=== PATIENT | male | born 1960 | race Caucasian/White ===

== ENCOUNTER 2016-10-05 22:57 | Emergency (ER) | payer SELFPAY ==
[~2016-10-05] VITALS: Ht 167.6 cm; Wt 66.5 kg
[~2016-10-05 22:57] MED LIST: CEFT1FRO2 IV; HYDR-906 PO; LANT3I SC; MTF1000T PO
[2016-10-05 23:02] VITALS: Ht 167.6 cm; Wt 66.5 kg
== END 2016-10-06 03:09 | disposition left against medical advice (07) ==
LOC: FTE 22:57
DX: Z53.21 Procedure and treatment not carried out due to patient leaving prior to being seen by health care provider (principal)

== ENCOUNTER 2016-10-08 23:08 | Emergency (ER) | payer OTHER ==
[~2016-10-08] VITALS: Ht 175.3 cm; Wt 67.5 kg
[2016-10-08 23:11] VITALS: Ht 175.3 cm; Wt 67.5 kg
--- NOTE | 2016-10-09 00:08 | ERD ---
ER Documentation Chief Complaint Date/Time DATE: 10/09/16 TIME: 00:05 Chief Complaint requesting picc line removal HPI 56-year-old male presents here in emergency department for PICC line removal, patient had a 10 day course of IV antibiotics, was done 3 weeks ago. Patient denies any pain or redness running the PICC line area. Patient is here today for having the PICC line removed. Patient states that is done with these treatments. Patient denies any fever or chills. Patient denies any chest pain. Patient denies any other complaints. ROS All systems reviewed and are negative except as per history of present illness. Medications Home Meds Active Scripts Insulin Glargine* (Lantus*) 100 Unit/Ml Soln, 35 UNIT SC DAILY, #1 VIAL Prov:LANDON,TOPHER V. DISEASE CASE MANAGER 08/29/16 Hydrocodone/Acetaminophen ([place] 5-325 Tablet) 1 Each Tablet, 1 EACH PO Q6H for PAIN, #20 TAB Prov:LANDON,TOPHER V. DISEASE CASE MANAGER 08/29/16 Ceftriaxone Na/Dextrose,Iso (Ceftriaxone 1 gm Piggyback) 1 Gm/50 Ml Froz.piggy, 1 GM IV DAILY for 10 Days Prov:LANDON,TOPHER V. DISEASE CASE MANAGER 08/29/16 Reported Medications Metformin* (Glucophage*) 1,000 Mg Tablet, 1000 MG PO BID, #60 TAB 08/26/16 Allergies Allergies: Coded Allergies: No Known Allergy (Verified , 05/08/16) PMhx/Soc Medical and Surgical Hx: pt denies Medical Hx, pt denies Surgical Hx History of Surgery: No Anesthesia Reaction: No Hx Neurological Disorder: No Hx Respiratory Disorders: No Hx Cardiac Disorders: No Hx Psychiatric Problems: No Hx Miscellaneous Medical Probl: No Hx Alcohol Use: No Hx Substance Use: No Hx Tobacco Use: No Smoking Status: Never smoker FmHx Family History: No coronary disease, No diabetes, No other Physical Exam Vitals Vital Signs Date Time Temp Pulse Resp B/P Pulse Ox O2 Delivery O2 Flow Rate FiO2 10/08/16 23:11 97.3 87 20 169/77 100 Physical Exam GENERAL: The patient is well developed and appropriate for usual state of health, in no apparent distress. CHEST: Clear to auscultation bilaterally. There are no rales, wheezes or rhonchi. HEART: Regular rate and rhythm. No murmurs, clicks, rubs or gallops. No S3 or S4. ABDOMEN: Soft, nontender and nondistended. Good bowel sounds. No rebound or guarding. No gross peritonitis. No gross organomegaly or masses. No Chavez sign or McBurney point tenderness. BACK: No midline or flank tenderness. EXTREMITIES: Patient has PICC line in place on the left arm, no erythema surrounding the area, no swelling noted, no induration noted. No symptoms of any infection. No discharge coming from the area. Equal pulses bilaterally. There is no peripheral clubbing, cyanosis or edema. No focal swelling or erythema. Full range of motion. Grossly neurovascularly intact. NEURO: Alert and oriented. Cranial nerves 2-12 intact. Motor strength in all 4 extremities with 5/5 strength. Sensation grossly intact. Normal speech and gait. SKIN: There is no apparent rash or petechia. The skin is warm and dry. HEMATOLOGIC AND LYMPHATIC: There is no evidence of excessive bruising or lymphedema. No gross cervical, axillary, or inguinal lymphadenopathy. Results 24 hrs I discussed this with Dr. Schmidt attending physician, he said that as long as patient agrees and verbalizes the treatment is done, that we can remove the PICC line in place, at this time, no symptoms of any infection, he recommended to send the PICC line tip for culture to the laboratory. No symptoms of sepsis at this time. Patient appears well and is hemodynamically stable. Pending culture results of the PICC line tip. Procedures/MDM Procedure Note: After patient's verbal consent, the area was cleaned with diluted Betadine, the area was inspected, there is no symptoms of any infection surrounding the PICC line, afterwards, the PICC line was removed without any difficulty. Patient tolerated procedure well. A dressing was applied on affected area, pressure dressing was applied on affected area, no bleeding at this time. Medical decision making: Patient does not have any signs of infection in the PICC line, a PICC line and culture was sent. Patient tolerated procedure well. Patient is advised to follow-up with primary care doctor in 1-2 days, return for any symptoms of infection on the PICC line. Departure Diagnosis: Primary Impression: PIC line (peripherally inserted central catheter) removal Condition: Stable LEONORA CATALAN NP Oct 09, 2016 00:08
== END 2016-10-09 01:20 | disposition home or self-care (01) ==
LOC: FTE 23:08
DX: Z45.2 Encounter for adjustment and management of vascular access device (principal); E11.9 Type 2 diabetes mellitus without complications; N18.9 Chronic kidney disease, unspecified; Z79.4 Long term (current) use of insulin; Z79.84 Long term (current) use of oral hypoglycemic drugs
CPT/HCPCS: 87070; Z7502; 99283

== ENCOUNTER 2017-02-19 19:20 | Emergency (ER) | payer OTHER ==
[~2017-02-19] VITALS: Ht 177.8 cm; Wt 72.0 kg
[2017-02-19 19:41] VITALS: Ht 177.8 cm; Wt 72.0 kg
--- NOTE | 2017-02-19 20:57 | ERA ---
ER Documentation Chief Complaint Date/Time DATE: 02/19/17 TIME: 20:55 Chief Complaint cough x 2 weeks HPI Patient presents complaining of 2 weeks of cough. Patient has taken over-the- counter cough medicine with minimal relief. Patient does not remember specific cough medication. Patient denies difficulty breathings, asthma, high fever, meningismus, pharyngitis, change in voice, drooling, chest pain, hemoptysis, dysphagia, edema/angioedema, excessive weight loss, sweats, chills or rigors. ROS All systems reviewed and are negative except as per history of present illness. Medications Home Meds Active Scripts Benzonatate* (Tessalon Perle*) 100 Mg Capsule, 100 MG PO TID for 3 Days, #9 CAP Prov:KHOA TABARES PA-C 02/19/17 Insulin Glargine* (Lantus*) 100 Unit/Ml Soln, 35 UNIT SC DAILY, #1 VIAL Prov:LANDON,TOPHER V. GOLF BALL COVER TREATER 08/29/16 Hydrocodone/Acetaminophen ([place] 5-325 Tablet) 1 Each Tablet, 1 EACH PO Q6H for PAIN, #20 TAB Prov:LANDON,TOPHER V. GOLF BALL COVER TREATER 08/29/16 Ceftriaxone Na/Dextrose,Iso (Ceftriaxone 1 gm Piggyback) 1 Gm/50 Ml Froz.piggy, 1 GM IV DAILY for 10 Days Prov:LANDON,TOPHER V. GOLF BALL COVER TREATER 08/29/16 Reported Medications Metformin* (Glucophage*) 1,000 Mg Tablet, 1000 MG PO BID, #60 TAB 08/26/16 Allergies Allergies: Coded Allergies: No Known Allergy (Verified , 02/19/17) PMhx/Soc Medical and Surgical Hx: pt denies Medical Hx, pt denies Surgical Hx History of Surgery: No Anesthesia Reaction: No Hx Neurological Disorder: No Hx Respiratory Disorders: No Hx Cardiac Disorders: No Hx Psychiatric Problems: No Hx Miscellaneous Medical Probl: Yes (dm 2) Hx Alcohol Use: No Hx Substance Use: No Hx Tobacco Use: No Smoking Status: Never smoker Physical Exam Vitals Vital Signs Date Time Temp Pulse Resp B/P Pulse Ox O2 Delivery O2 Flow Rate FiO2 02/19/17 19:41 98.4 97 20 131/85 98 Physical Exam Const: Well-developed overweight 56-year-old male no acute distress. Head: Atraumatic Eyes: Normal Conjunctiva ENT: Normal External Ears, Nose and Mouth. Neck: Full range of motion..~ No meningismus. Resp: Mild crackles in lower lobes bilaterally. Cardio: Regular rate and rhythm, no murmurs Abd: Soft, non tender, non distended. Normal bowel sounds Skin: No petechiae or rashes Back: No midline or flank tenderness Ext: No cyanosis, or edema Neur: Awake and alert Psych: Normal Mood and Affect Procedures/MDM This is a patient being worked up and evaluated for cough. Patient's x-ray was unremarkable. Patient's chest examination revealed only mild crackles in lower lobes. At this time a very low suspicion for pneumonia, management of the airway, bacterial etiology. The most likely diagnosis is acute bronchitis due to a viral origin. Will give patient traumatic therapy with Tesangelo Martin. Have advised patient to follow-up with PCP in 1-3 days for reevaluation. Patient's vitals are stable and patient's concurrent condition is appropriate for discharge. Departure Diagnosis: Primary Impression: Acute bronchitis Qualified Code: J20.9 - Acute bronchitis, unspecified organism Condition: Stable Additional Instructions: Follow up with your PCP within the next 1-3 days for a more thorough evaluation and a possible referral to a specialist. Return the the emergency department immediately if symptoms worsen or change. If you have any questions regarding medications, ask your pharmacist or us before you leave. If any adverse reactions occur while taking your medications, discontinue the treatment and return to the emergency department immediately. Take your medications as directed, and complete the entire course of treatment. KHOA TABARES PA-C February 19, 2017 20:57
--- NOTE | 2017-02-19 23:19 | RADRPT ---
PROCEDURE: XR Chest. CLINICAL INDICATION: Cough. TECHNIQUE: PA and lateral views of the chest were obtained. COMPARISON: 08/28/2016 FINDINGS: The trachea central bronchi are patent. The cardiomediastinal silhouette is within normal limits. The lungs are clear with improved aeration compared to the prior study. No pleural effusion or pneu mothorax is identified. The visualized osseous structures are intact. Interval removal of left PICC RPTAT:HJJR IMPRESSION: Unremarkable two-view chest x-ray with improved aeration of the lungs compared to 08/28/2016. Physician Bob Date Time Electronically viewed and signed by Physician Bob on 02/19/2017 23:19 JR/
[2017-02-19] MEDS ORDERED: BENZ100C70 PO (23:42)
[2017-02-19 23:55] VITALS: BP 159/75; PULSE 92; RESP 22; TEMP 98.2
== END 2017-02-19 23:57 | disposition home or self-care (01) ==
LOC: FTE 19:20
DX: J20.9 Acute bronchitis, unspecified (principal); E11.9 Type 2 diabetes mellitus without complications; Z79.4 Long term (current) use of insulin; Z79.84 Long term (current) use of oral hypoglycemic drugs
CPT/HCPCS: 71020; Z7502

== ENCOUNTER 2017-06-22 11:00 | Emergency (ER) | payer OTHER ==
[~2017-06-22] VITALS: Ht 167.6 cm; Wt 69.5 kg
[~2017-06-22 11:00] MED LIST changes: +BENZ100C70 PO
[2017-06-22 11:04] VITALS: Ht 167.6 cm; Wt 69.5 kg
[2017-06-22] MEDS ORDERED: SODIUM CHLORIDE 0.9% 1L BAG IV* STA (11:28)
--- NOTE | 2017-06-22 11:50 | RADRPT ---
PROCEDURE: XR Chest. CLINICAL INDICATION: Cough. Sepsis. TECHNIQUE: Single frontal view. COMPARISON: 02/19/2017. FINDINGS: The lungs are clear. The heart size is normal. There is no pleural effusion. There is no pneumothorax. IMPRESSION: 1. Normal chest radiograph. RPTAT: QQ .Archie Yao MD, MD Date Time Electronically viewed and signed by .Archie Yao MD, MD on 06/22/2017 11:49 .R/
[2017-06-22 12:58] LABS: HEMATOCRIT 41.5 % (42.0-52.0); HEMOGLOBIN 14.8 g/dl (14.0-18.0); MEAN CORPUSCULAR HEMOGLOBIN 30.1 pg (29.0-33.0); MEAN CORPUSCULAR HGB CONC 35.7 g/dl (32.0-37.0); MEAN CORPUSCULAR VOLUME 84.3 fl (82.0-101.0); MEAN PLATELET VOLUME 9.1 fl (7.4-10.4); PLATELET COUNT 292 10^3/UL (140-415); POSITIVE DIFF @See below; RED BLOOD COUNT 4.92 10^6/ul (4.70-6.10); RED CELL DISTRIBUTION WIDTH 11.6 % (11.5-14.5); WHITE BLOOD COUNT 11.6 10^3/ul (4.8-10.8)
[2017-06-22 13:18] LABS: ALBUMIN 4.5 g/dl (3.3-4.9); ALBUMIN/GLOBULIN RATIO 1.21; BILIRUBIN,INDIRECT 0.6 mg/dl (0-1.1); BILIRUBIN,TOTAL 0.6 mg/dl (0.2-1.3); CALCIUM 8.8 mg/dl (8.4-10.2); CREATININE 1.59 mg/dl (0.61-1.24); POTASSIUM 4.5 mmol/L (3.5-5.1); TOTAL PROTEIN 8.2 g/dl (6.1-8.1)
[2017-06-22 13:30] LABS: ADD UMIC YES; UR ASCORBIC ACID NEGATIVE (NEGATIVE); UR BILIRUBIN (Dip) NEGATIVE (NEGATIVE); UR BLOOD (Dip) NEGATIVE (NEGATIVE); UR CLARITY CLEAR (CLEAR); UR COLOR YELLOW (YELLOW); UR GLUCOSE (Dip) NEGATIVE (NEGATIVE); UR KETONES (Dip) TRACE mg/dL (NEGATIVE); UR LEUKOCYTE ESTERASE (Dip) NEGATIVE Leu/ul (NEGATIVE); UR NITRITE (Dip) NEGATIVE (NEGATIVE); UR RBC 2 /HPF (0-5); UR SPECIFIC GRAVITY (Dip) 1.011 (1.003-1.030); UR TOTAL PROTEIN (Dip) 1+ mg/dl (NEGATIVE); UR UROBILINOGEN (Dip) NEGATIVE (NEGATIVE)
[2017-06-22] MEDS ORDERED: CEFTRIAXONE 1 GM/50 ML (PMX) 50 ML IVPB ONE (13:30)
[2017-06-22] MEDS ORDERED: ACETAMINOPHEN 500 MG TAB PO STA (13:33)
[2017-06-22 13:36] LABS: ANISOCYTOSIS 1+ (0-0); EOSINOPHILS % (M) 1 % (0-7); HYPOCHROMASIA 1+ (0-0); MONOCYTES % (M) 6 % (0-11); PLATELET ESTIMATE NORMAL
--- NOTE | 2017-06-22 14:07 | ERD ---
ER Documentation Chief Complaint Date/Time DATE: 06/22/17 TIME: 14:03 Chief Complaint pt feels weak ; high blood sugar level; fever - diabetic HPI 57-year-old male with a history of diabetes on insulin presenting to the ER complaining of generalized weakness and sore throat. He states his symptoms started yesterday. He denies any associated headache, vision disturbance, neck pain or stiffness, nausea, vomiting, photophobia, chest pain, abdominal pain, cough or shortness of breath, or dysuria. He has not noticed any rashes. No sick contacts. No recent travel. ROS All systems reviewed and are negative except as per history of present illness. Medications Home Meds Active Scripts Acetaminophen* (Tylophen*) 500 Mg Capsule, 1 CAP PO Q6H Y for FEVER, #20 CAP Prov:LYDIA MORIN MD 06/22/17 Insulin Glargine* (Lantus*) 100 Unit/Ml Soln, 35 UNIT SC DAILY, #1 VIAL Prov:TOPHER LANDON NP 08/29/16 Reported Medications Metformin* (Glucophage*) 1,000 Mg Tablet, 1000 MG PO BID, #60 TAB 08/26/16 Discontinued Scripts Benzonatate* (Tessalon Perle*) 100 Mg Capsule, 100 MG PO TID for 3 Days, #9 CAP Prov:KHOA TABARES PA-C 02/19/17 Hydrocodone/Acetaminophen ([place] 5-325 Tablet) 1 Each Tablet, 1 EACH PO Q6H for PAIN, #20 TAB Prov:TOPHER LANDON NP 08/29/16 Ceftriaxone Na/Dextrose,Iso (Ceftriaxone 1 gm Piggyback) 1 Gm/50 Ml Froz.piggy, 1 GM IV DAILY for 10 Days Prov:TOPHER LANDON NP 08/29/16 Allergies Allergies: Coded Allergies: No Known Allergy (Verified , 06/22/17) PMhx/Soc History of Surgery: No Anesthesia Reaction: No Hx Neurological Disorder: No Hx Respiratory Disorders: No Hx Cardiac Disorders: No Hx Psychiatric Problems: No Hx Miscellaneous Medical Probl: Yes (dm 2) Hx Alcohol Use: No Hx Substance Use: No Hx Tobacco Use: No FmHx Family History: No coronary disease Physical Exam Vitals Vital Signs Date Time Temp Pulse Resp B/P Pulse Ox O2 Delivery O2 Flow Rate FiO2 06/22/17 11:04 101.6 134 27 132/80 99 Physical Exam Const: Well-appearing, nontoxic, no significant distress Head: Atraumatic Eyes: Normal Conjunctiva, PERRLA, EOMI ENT: Normal External Ears, Nose and Mouth. Posterior oropharynx with erythema without any swelling or exudate. No stridor. No drooling. Neck: Full range of motion..~ No meningismus. No cervical lymphadenopathy Resp: Clear to auscultation bilaterally Cardio: Tachycardic with regular rhythm, no murmurs. 2+ distal pulses Abd: Soft, non tender, non distended. Normal bowel sounds Skin: No petechiae or rashes Back: No midline or flank tenderness Ext: No cyanosis, or edema Neur: Awake and alert, oriented 3, cranial nerves intact, strength and sensations intact in all 4 extremities Psych: Normal Mood and Affect Result Diagram: 06/22/17 1243 06/22/17 1243 Results 24 hrs Laboratory Tests Test 06/22/17 12:43 White Blood Count 11.610^3/ul Red Blood Count 4.9210^6/ul Hemoglobin 14.8g/dl Hematocrit 41.5% Mean Corpuscular Volume 84.3fl Mean Corpuscular Hemoglobin 30.1pg Mean Corpuscular Hemoglobin Concent 35.7g/dl Red Cell Distribution Width 11.6% Platelet Count 76516^3/UL Mean Platelet Volume 9.1fl Neutrophils % % Segmented Neutrophils % (Manual) 73% Lymphocytes % % Lymphocytes % (Manual) 20% Monocytes % % Monocytes % (Manual) 6% Eosinophils % % Eosinophils % (Manual) 1% Basophils % % Nucleated Red Blood Cells % 0.0/100WBC Neutrophils # 10^3/ul Absolute Lymphocytes (Manual) 2.310^3/ul Lymphocytes # 10^3/ul Monocytes # 10^3/ul Absolute Monocytes (Manual) 0.610^3/ul Eosinophils # 10^3/ul Basophils # 10^3/ul Nucleated Red Blood Cells # 10^3/ul Platelet Estimate NORMAL Hypochromasia 1+ Anisocytosis 1+ Urine Color YELLOW Urine Clarity CLEAR Urine pH 6.0 Urine Specific [place] 1.011 Urine Ketones TRACEmg/dL Urine Nitrite NEGATIVEmg/dL Urine Bilirubin NEGATIVEmg/dL Urine Urobilinogen NEGATIVEmg/dL Urine Leukocyte Esterase NEGATIVELeu/ul Urine Microscopic RBC 2/HPF Urine Microscopic WBC 1/HPF Urine Hemoglobin NEGATIVEmg/dL Urine Glucose NEGATIVEmg/dL Urine Total Protein 1+mg/dl Sodium Level 139mmol/L Potassium Level 4.5mmol/L Chloride Level 104mmol/L Carbon Dioxide Level 23mmol/L Anion Gap 17 Blood Urea Nitrogen 15mg/dl Creatinine 1.59mg/dl Glucose Level 134mg/dl Lactic Acid Level 1.4mmol/L Calcium Level 8.8mg/dl Total Bilirubin 0.6mg/dl Direct Bilirubin 0.00mg/dl Indirect Bilirubin 0.6mg/dl Aspartate Amino Transf (AST/SGOT) 30IU/L Alanine Aminotransferase (ALT/SGPT) 57IU/L Alkaline Phosphatase 138IU/L Total Protein 8.2g/dl Albumin 4.5g/dl Globulin 3.70g/dl Albumin/Globulin Ratio 1.21 Current Medications Medications (Trade) Dose Ordered Sig/Latanya Route PRN Reason Start Time Stop Time Status Last Admin Dose Admin Sodium Chloride 2150 ml 2,150 ml BOLUS OVER 2 HOURS STAT IV* 06/22/17 11:28 06/22/17 11:30 DC 06/22/17 11:28 Ceftriaxone Sodium (Rocephin) 50 ml @ 100 mls/hr ONCE ONCE IVPB 06/22/17 13:30 06/22/17 13:59 DC 06/22/17 13:10 Acetaminophen (Tylenol Tab) 1,000 mg ONCE STAT PO 06/22/17 13:33 06/22/17 13:34 DC 06/22/17 14:05 Procedures/MDM EKG: Rate/Rhythm: Sinus Tachycardia at 125 bpm QRS, ST, T-waves: No changes consistent w/ acute ischemia Impression: No evidence of ischemia or arrhythmia CXR: no acute abnormalities Labs: CBC: mild leukocytosis, no anemia CMP: No evidence of electrolyte abnormality, renal failure, hypoglycemia, liver failure, or biliary obstruction Lactate within normal limits UA: no evidence of infection Patient is presenting with fever, weakness, sore throat. Sepsis workup was initiated. However the patient is well appearing on my exam without any significant focal findings. Labs did not show any significant abnormalities other than mild leukocytosis. Lactate was within normal limits. He did receive a 30 cc/kg fluid bolus with 1 dose of Rocephin. Influenza test and rapid strep tests were ordered. If these are normal, I suspect the etiology of his fever may be secondary to a viral infection. I have a very low suspicion for acute meningitis or encephalitis. I discussed my thoughts with the patient and he is agreeable to going home with strict return precautions. The oncoming ED physician will follow up on these pending labs. If the patient needs antibiotics, a prescription will be given. Otherwise the patient will go home with Tylenol. Follow up with primary care doctor was advised for tomorrow. Departure Diagnosis: Primary Impression: Acute febrile illness Condition: LYDIA Mullins MD Jun 22, 2017 14:07
[2017-06-22] MEDS ORDERED: ACET500C5 PO (14:13)
[2017-06-22 16:18] VITALS: BP 105/65; PULSE 89; RESP 18; TEMP 99.9
== END 2017-06-22 18:28 | disposition home or self-care (01) ==
LOC: E/R 11:00
DX: R50.9 Fever, unspecified (principal); E11.9 Type 2 diabetes mellitus without complications; Z79.4 Long term (current) use of insulin
CPT/HCPCS: 36415; 71010; 80053; 81001; 83605; 85025; 87040; 87086; 87400; 87880; 93005; 96374; J0696; J7030; Z7502; Z7610